=== PATIENT | male | born 1985 | race Caucasian/White ===

== ENCOUNTER → 2021-05-26 | Outpatient (CLI) | payer BC ==
[2021-05-26 12:01] LABS: BASOPHILS % 0.5 % (0.0-2.0); EOSINOPHILS % 0.4 % (0.0-5.0); HEMATOCRIT. 45.8 % (42.0-52.0); HEMOGLOBIN. 15.1 g/dL (14.0-18.0); LYMPHOCYTES % 20.1 % (20.0-50.0); MEAN CORPUSCULAR HEMOGLOBIN 27.9 pg (28.0-32.0); MEAN CORPUSCULAR VOLUME 84.6 fL (80.0-94.0); MEAN PLATELET VOLUME 7.3 fl (7.4-10.4); MONOCYTES % 9.1 % (2.0-8.0); NEUTROPHILS % 69.9 % (40.0-76.0); PLATELET 254 x1000/uL (130-400); RED BLOOD CELL COUNT 5.42 mill/uL (4.7-6.1); RED CELL DISTRIBUTION WIDTH 13.8 % (11.6-14.6)
[2021-05-26 12:12] LABS: CHLORIDE 109 mEq/L (98-107)
[2021-05-26 12:35] LABS: CLARITY URINE CLEAR (CLEAR); COLOR URINE YELLOW (YELLOW); KETONES URINE NEGATIVE (NEGATIVE); LEUKOCYTE ESTERASE URINE NEGATIVE (NEGATIVE); NITRITE URINE NEGATIVE (NEGATIVE); OCCULT BLOOD URINE NEGATIVE (NEGATIVE); PROTEIN URINE NEGATIVE (NEGATIVE); SPECIFIC GRAVITY URINE 1.007 (1.005-1.030); UROBILINOGEN URINE 0.2 E.U./dL (0.2-1.0)
[2021-05-27 06:22] LABS: ESTRADIOL 16.7 pg/mL (7.6-42.6); HIV SCREEN 4G Non Reactive (Non Reactive); LUTEINIZING HORMONE 1.2 mIU/mL (1.7-8.6)
[2021-05-30 14:24] LABS: HEPATITIS B SURFACE ANTIGEN NEGATIVE
[2021-06-02 08:09] LABS: TESTOSTERONE FREE 15.4 pg/mL (8.7-25.1)
== END | disposition home or self-care (01) ==
LOC: LAB 11:18
DX: Z13.29 Encounter for screening for other suspected endocrine disorder (principal); Z11.3 Encounter for screening for infections with a predominantly sexual mode of transmission; Z20.2 Contact with and (suspected) exposure to infections with a predominantly sexual mode of transmission; Z79.899 Other long term (current) drug therapy
CPT/HCPCS: 36415; 80053; 80327; 81003; 82670; 83001; 83002; 84402; 84403; 84443; 85025; 86592; 86705; 86709; 86803; 87340; 87389

== ENCOUNTER → 2021-09-06 | Day surgery (SDC) | payer BC ==
[~2021-09-06] VITALS: Ht 180.3 cm; Wt 85.3 kg
[~2021-09-06] MED LIST: BUPIVACAINE HCL 0.5% (5MG/ML) 50ML ONE; CEFAZOLIN SODIUM 1000MG/VIAL ONE; FENTANYL CITRATE/PF 50MCG/ML 2ML VIAL IV PRN; FENTANYL CITRATE/PF 50MCG/ML 2ML VIAL ONE; FINA1TAB MT; GLYCOPYRROLATE 0.2 MG/ML 2ML VIAL ONE; HYDR-4009 MT; HYDROCODONE/ACETAMINOPHEN 5/325MG TABLET PO NR; HYDROMORPHONE HCL/PF 2MG/ML CPJ ONE; KETOROLAC 30MG/ML VIAL ONE; LACTATED RINGERS 1,000 ML IV SCH; LIDOCAINE HCL 1% 20ML VIAL (Pyxis) INJ ONE; MEPERIDINE HCL/PF 25MG/ML CPJ IV PRN; MIDAZOLAM HCL 2 MG/2 ML VIAL ONE; NAPR-1176 MT; NEOSTIGMINE METHYLSULFATE 1MG/ML 10 ML VIAL ONE; ONDA4TAB5 MT; ONDANSETRON HCL 4MG/2ML INJ IV PRN; ONDANSETRON HCL 4MG/2ML INJ ONE; PROPOFOL 200MG/20ML VIAL IV ONE; ROCURONIUM BROMIDE 10MG/ML VIAL 5ML IV ONE; SKIN ADHESIVE 0.7 GM EA TOP ONE
[2021-09-06] MEDS: HYDROMORPHONE HCL/PF 2MG/ML CPJ IV PRN ×5 (11:48→12:25)
[2021-09-06 14:08] VITALS: BP 129/64
== END | disposition home or self-care (01) ==
LOC: OR 06:35
PROVIDERS: ATTEND Surgery
DX: K43.2 Incisional hernia without obstruction or gangrene (principal); Z79.899 Other long term (current) drug therapy; Z98.890 Other specified postprocedural states; Z90.49 Acquired absence of other specified parts of digestive tract; Z20.822 Contact with and (suspected) exposure to COVID-19
CPT/HCPCS: 49652; 87426; J0690; J1170; J1885; J2250; J2405; J2704; J2710; J3010; J3490; J7030; 73706; C1781

== ENCOUNTER → 2021-09-23 | Outpatient (CLI) | payer BC ==
[~2021-09-23] MED LIST changes: -BUPIVACAINE HCL 0.5% (5MG/ML) 50ML ONE; -CEFAZOLIN SODIUM 1000MG/VIAL ONE; -FENTANYL CITRATE/PF 50MCG/ML 2ML VIAL IV PRN; -FENTANYL CITRATE/PF 50MCG/ML 2ML VIAL ONE; -GLYCOPYRROLATE 0.2 MG/ML 2ML VIAL ONE; -HYDROCODONE/ACETAMINOPHEN 5/325MG TABLET PO NR; -HYDROMORPHONE HCL/PF 2MG/ML CPJ ONE; -KETOROLAC 30MG/ML VIAL ONE; -LACTATED RINGERS 1,000 ML IV SCH; -LIDOCAINE HCL 1% 20ML VIAL (Pyxis) INJ ONE; -MEPERIDINE HCL/PF 25MG/ML CPJ IV PRN; -MIDAZOLAM HCL 2 MG/2 ML VIAL ONE; -NEOSTIGMINE METHYLSULFATE 1MG/ML 10 ML VIAL ONE; -ONDANSETRON HCL 4MG/2ML INJ IV PRN; -ONDANSETRON HCL 4MG/2ML INJ ONE; -PROPOFOL 200MG/20ML VIAL IV ONE; -ROCURONIUM BROMIDE 10MG/ML VIAL 5ML IV ONE; -SKIN ADHESIVE 0.7 GM EA TOP ONE
== END | disposition home or self-care (01) ==
LOC: MRI 12:58
PROVIDERS: ATTEND Psychiatry & Neurology Neurology
DX: M48.02 Spinal stenosis, cervical region (principal); M47.814 Spondylosis without myelopathy or radiculopathy, thoracic region; M50.222 Other cervical disc displacement at C5-C6 level; M51.27 Other intervertebral disc displacement, lumbosacral region
CPT/HCPCS: 72141; 72146; 72148

== ENCOUNTER 2021-11-03 15:53 | Emergency (ER) | payer BC ==
[~2021-11-03] VITALS: Ht 180.3 cm; Wt 82.0 kg
[2021-11-03 16:55] LABS: BASOPHILS % 0.4 % (0.0-2.0); HEMATOCRIT. 42.1 % (42.0-52.0); HEMOGLOBIN. 14.7 g/dL (14.0-18.0); LYMPHOCYTES % 24.9 % (20.0-50.0); MEAN CORPUSCULAR HEMOGLOBIN 28.1 pg (28.0-32.0); MEAN CORPUSCULAR VOLUME 80.6 fL (80.0-94.0); MEAN PLATELET VOLUME 6.8 fl (7.4-10.4); MONOCYTES % 9.1 % (2.0-8.0); NEUTROPHILS % 63.6 % (40.0-76.0); PLATELET 326 x1000/uL (130-400); RED BLOOD CELL COUNT 5.22 mill/uL (4.7-6.1)
[2021-11-03 17:02] LABS: CHLORIDE 107 mEq/L (98-107)
[2021-11-03 17:03] LABS: CLARITY URINE CLEAR (CLEAR); COLOR URINE DARK YELLOW (YELLOW); KETONES URINE TRACE (NEGATIVE); LEUKOCYTE ESTERASE URINE NEGATIVE (NEGATIVE); NITRITE URINE NEGATIVE (NEGATIVE); OCCULT BLOOD URINE TRACE (NEGATIVE); PH URINE 5.5 (4.5-8.0); PROTEIN URINE TRACE (NEGATIVE); SPECIFIC GRAVITY URINE 1.029 (1.005-1.030); UROBILINOGEN URINE 0.2 E.U./dL (0.2-1.0)
[2021-11-03 17:08] LABS: LDL CHOLESTEROL 184 mg/dL (5-100)
[2021-11-03 17:09] LABS: HDL CHOLESTEROL 16 mg/dL (40-59)
[2021-11-03 18:03] LABS: HEPATITIS B SURFACE ANTIGEN NEGATIVE
[2021-11-03 18:14] VITALS: BP 121/68
[2021-11-05 09:06] LABS: ESTRADIOL 74.4 pg/mL (7.6-42.6); FOLICLE STIMULATING HORMONE < 0.3 mIU/mL (1.5-12.4); LUTEINIZING HORMONE 0.7 mIU/mL (1.7-8.6)
[2021-11-08 09:11] LABS: TESTOSTERONE FREE >50.0 pg/mL (8.7-25.1)
== END 2021-11-03 18:00 | disposition home or self-care (01) ==
LOC: ER 15:53
DX: R10.9 Unspecified abdominal pain (principal); E78.49 Other hyperlipidemia; E78.5 Hyperlipidemia, unspecified; R74.01 Elevation of levels of liver transaminase levels; Z90.49 Acquired absence of other specified parts of digestive tract
CPT/HCPCS: 36415; 76700; 80053; 80061; 81003; 82670; 83001; 83002; 84402; 84403; 85025; 86705; 86709; 86803; 87340; 93005; 99285